=== PATIENT | female | born 1995 | race Caucasian/White ===

== ENCOUNTER → 2020-11-07 | Outpatient (CLI) | payer OTHER ==
[~2020-11-07] MED LIST: GADOBUTROL 10 MMOL/10 ML (GADAVIST) VIAL IV ONE
--- NOTE | 2020-11-07 16:52 | Diagnostic Imaging Report ---
PROCEDURE: MR imaging of the brain with and without contrast. TECHNIQUE: Multiplanar, multisequence MR imaging of the brain was performed with and without contrast. INDICATION: Daily headaches. Syncopal episodes. COMPARISON: none FINDINGS: No acute ischemia, mass, or hemorrhage. No abnormal enhancement is seen. No focal signal abnormalities. The ventricles, cortical sulci, and basilar cisterns are symmetric and unremarkable. The sellar and suprasellar regions have a normal appearance. The bilateral hippocampi have a symmetric and unremarkable appearance. The brainstem and posterior fossa are unremarkable. The paranasal sinuses and mastoid air cells demonstrate normal signal characteristics. The globes and orbits are symmetric and unremarkable. The scalp and calvarium have a normal appearance. IMPRESSION: 1. No acute ischemia, mass, or hemorrhage. No focal signal abnormalities or abnormal enhancement is seen in the brain. 2. No evidence of mesial temporal sclerosis. No findings to suggest heterotopia or cortical dysplasia. Dictated by: Dictated on workstation # [id number]
== END ==
LOC: RAD 16:15
PROVIDERS: ATTEND Internal Medicine
DX: R56.9 Unspecified convulsions (principal); R51.9 Headache, unspecified; R55 Syncope and collapse
CPT/HCPCS: 70553

== ENCOUNTER → 2023-02-21 | Outpatient (CLI) | payer BC ==
--- NOTE | 2023-02-21 17:11 | Diagnostic Imaging Report ---
PROCEDURE: US Non-ob pelvis comp/trans. TECHNIQUE: Multiple realtime grayscale images were obtained of the pelvis in various projections endovaginally. Transabdominal imaging was also performed. INDICATION: Evaluate IUD. COMPARISON: None. FINDINGS: Transabdominal: The uterus and adnexa have a unremarkable transabdominal appearance. Transvaginal images were obtained for additional characterization. Transvaginal: The uterus is anteverted and measures 7.3 x 3.2 x 4.3 cm. The endometrial stripe measures 0.7 cm and has a normal appearance. The IUD is visualized in the endometrium in appropriate configuration. The right ovary is well visualized measuring 3.9 x 2.1 x 3.3 cm and demonstrating normal color Doppler flow. The left ovary is well-visualized measuring 2.8 x 2.7 x 2.2 cm with normal color Doppler flow. Bilateral dominant follicles/cysts are visualized. No adnexal masses. A small amount of free fluid is seen in the pelvis. IMPRESSION: 1. Appropriate configuration of the IUD. 2. Bilateral dominant follicles/cysts in the ovaries. No adnexal mass or torsion. Small amount of free fluid in the pelvis. Dictated by: Dictated on workstation # [id number]
== END ==
LOC: RAD 13:00
PROVIDERS: ATTEND Nurse Practitioner Women's Health
DX: Z30.430 Encounter for insertion of intrauterine contraceptive device (principal); N83.02 Follicular cyst of left ovary; N83.01 Follicular cyst of right ovary
CPT/HCPCS: 76830; 76856